=== PATIENT | male | born 1940 | race Caucasian/White ===

== ENCOUNTER 2016-07-11 08:11 | Day surgery (SDC) | payer MEDICARE ==
[~2016-07-11 08:11] MED LIST: CLINDAMYCIN 600 MG PREMIX 50 ML IV ONE; IV START KIT ONE; LACTATED RINGERS 1,000 ML ONE
[2016-07-11] MEDS ORDERED: CLINDAMYCIN 600 MG PREMIX 50 ML IV PRN (08:15)
--- NOTE | 2016-07-11 08:46 | HP ---
DATE OF CLINIC: 07/03/2016 FORTINO JORGE : 1940 PLANNED PROCEDURE: Right Shoulder Arthroscopic Rotator Cuff Repair, Biceps Tenotomy and Debridement DATE OF SURGERY: July 11, 2016 SURGEON: Bhavesh Hsieh M.D. HISTORY OF PRESENT ILLNESS Fortino Jorge is a 75 year old male. * Medication list reviewed with patient allergy list reviewed with patient. * Has not tried NSAIDS * Has not tried Physical Therapy * Has not tried Injections The patient is a 75-year-old male who has had persistent right shoulder pain. The patient is here with his and that the last time that I saw the patient. I was concerned about his shoulder pain consistent with a rotator cuff tear and a pain in the anterior aspect of his shoulder consistent with biceps tendinitis. For this reason I administered a right shoulder bicipital groove injection. The patient states that since this injection he has done quite well until May 26, 2016 when he started to have more shoulder pain. The patient's past medical history significant for right shoulder open rotator cuff repair in the late . He has done well until more recently. We do have an MRI of the shoulder that shows the full thickness rotator cuff tear. The patient has had two rotator cuff repairs on his left side for a total of three procedures on his left shoulder. He is quite familiar with this surgery and would like to talk to me about the risks and benefits of non-operative and surgical treatment. The patient does have diabetes, for which he takes metformin. He did say that the right shoulder bicipital groove injection did increase his blood sugars. This was a temporary affect. After discussion and review of treatment options, both non-operative and surgical, he has elected to proceed with surgery and presents today preoperatively. CURRENT MEDICATION * GlipiZIDE 10 MG Tablet 1 twice a day 0 days, 0 refills * MetFORMIN HCl 1000 MG Tablet 1 twice a day 0 days, 0 refills * Multivitamins Capsule 1 once a day 0 days, 0 refills * Simvastatin 40 MG Tablet 1 once a day 0 days, 0 refills PAST MEDICAL/SURGICAL HISTORY Reported: No Surgery/Hospitalizations reported. Medical: Cholesterol problems. Stomach problems, a fracture, cancer, and history of Arthritis. Surgical / Procedural: Surgical / procedural history laminectomy 1990s bilateral shoulder scope done by Dr. Agrawal @ [facility] Left knee scope Left ankle. Left shoulder scope 09/30/[address] Agrawal Bilateral trigger finger sx NO new surgeries since last seen and Arthroscopy Right knee scope/LM/debridment done 10/06/[address] Agrawal. Tests: Blood pressure was high. Diagnoses: Diabetes mellitus. Fracture Appendectomy 1959. SOCIAL HISTORY Behavioral: Chewing tobacco 3 cans a week and non-smoker quit smoking Just started Chantix again. In process of quitting. Smoking status: Never smoker. Alcohol: No consumption of alcohol rarely. Drug Use: Not using drugs. Work: Retired. ALLERGIES * Penicillins Reaction: swelling FAMILY HISTORY 5 children living Cancer sibling lung Family History Diabetes Melliutus sibling REVIEW OF SYSTEMS Systemic: No fever and no recent weight change. Cardiovascular: No chest pain or discomfort and no palpitations. Pulmonary: No cough and no wheezing. Gastrointestinal: No nausea, no vomiting, no abdominal pain, and no diarrhea. Hematologic: No easy bleeding (no blood clots). Neurological: No motor disturbances and no sensory disturbances. Skin: No skin lesions and no rash. PHYSICAL FINDINGS * Vitals taken 07/03/2016 10:56 am BP-Sitting R 155/93 mmHg 100 - 120/60 - 80 BP Cuff Size Regular Pulse Rate-Sitting 80 bpm 50 - 100 Pulse Rhythm Regular Temp-Oral 98.2 F 96 - 101 Height 72 in 64 - 74 Weight 200 lbs 121 - 205 Body Mass Index 27.1 kg/m2 Body Surface Area 2.13 m2 Pain Level 6 General Appearance: * Well developed. * In no acute distress. Eyes: General/bilateral: Extraocular Movements: * Normal. Lungs: * Clear to auscultation. * No wheezing was heard. * No rales/crackles were heard. Cardiovascular: Heart Rate and Rhythm: * Heart rate was normal. * Heart rhythm regular. Abdomen: Palpation: * Abdominal non-tender. Neurological: * Oriented to time, place, and person. Motor: * Dominant Hand = Right Hand. I examined the patient's right and left shoulders. He has a well-healed anterior open incision and on the left side. He has both well-healed in the left open shoulder arthroscopic incisions. He continues to have fairly good range of motion. He has anterior lateral pain with right shoulder overhead motion. PHYSICAL FINDINGS RIGHT EXTREMITY Shoulder General Appearance: well-healed open RCR incision anterolaterally, no bruising, no swelling, no gross deformity AROM Forward Flexion: 150 degrees ABD: 110 degrees IR: Highest posterior anatomy reached with thumb: L3 PROM Forward Flexion: 160 degrees ABD: 120 degrees ER (0): 50 degrees Strength (0-5/5) Deltoid: 5/5 Triceps: 5/5 Biceps: 5/5 EPL,Finger Flexors,Finger Extensors,Wrist Flexors, Wrist Extensors,Intrinsics,Freight Hustler: 5/5 Rotator cuff Supraspinatus: 4/5 (POSITIVE empty can test) Infraspinatus: 4/5 (no pain with resisted external rotation) Subscapularis: 5/5 (negative belly press test) Rotator Cuff Exam Neer's Sign: Negative Hawkin's Sign: POSITIVE Superior Escape: Negative Biceps Exam Bicipital Groove Tenderness: POSITIVE [place]'s Sign: Negative Speed's Test: POSITIVE Muscle Deformity (Chace): Not present AC Exam AC Tenderness: Not tender AC Deformity: Negative Instability Generalized Laxity(thumb to forearm, hyperextension of elbows and knees, hypermobility of multiple joints): Not present, no signs of shoulder instability Vascular Exam Radial Pulse: 2+ Sensation Gross sensation to light touch in the distribution of Median, Ulnar and Radial nerves present PHYSICAL FINDINGS LEFT EXTREMITY Shoulder General Appearance: well-healed arthroscopic and open RCR incision anterolaterally, no bruising, no swelling, no gross deformity AROM Forward Flexion: 160 degrees ABD: 120 degrees IR: Highest posterior anatomy reached with thumb: L4 PROM Forward Flexion: 170 degrees ABD: 120 degrees ER (0): 50 degrees Strength (0-5/5) Deltoid: 5/5 Triceps: 5/5 Biceps: 5/5 EPL,Finger Flexors,Finger Extensors,Wrist Flexors, Wrist Extensors,Intrinsics,Freight Hustler: 5/5 Rotator cuff Supraspinatus: 5/5 (negative empty can test) Infraspinatus: 5/5 (no pain with resisted external rotation) Subscapularis: 5/5 (negative belly press test) Rotator Cuff Exam Neer's Sign: Negative Hawkin's Sign: POSITIVE Superior Escape: Negative Biceps Exam Bicipital Groove Tenderness: Negative [place]'s Sign: Negative Speed's Test: Negative Muscle Deformity (Chace): Present due to a previous biceps tenotomy AC Exam AC Tenderness: Not tender AC Deformity: Negative Instability Generalized Laxity(thumb to forearm, hyperextension of elbows and knees, hypermobility of multiple joints): Not present, no signs of shoulder instability Vascular Exam Radial Pulse: 2+ Sensation Gross sensation to light touch in the distribution of Median, Ulnar and Radial nerves present TESTS * Test: CBC NO DIFF Report Date: 07/03/2016 WBC 7.1 10*3/mL MCV 89.8 fL RBC 5.58 10*6/uL MCH 30.3 pg MCHC 33.7 g/dL RDW 12.9 % PLATELET COUNT 226 10*3/mL HCT 50.1 % HGB 16.9 g/L * Test: BASIC METABOLIC PROFILE Report Date: 07/03/2016 BUN 17 mg/dL BUN/CREAT RATIO 17 CALCIUM 9.7 mg/dL GLUCOSE 191 mg/dL High CREATININE 1.0 mg/dL SODIUM 139 meq/L POTASSIUM 4.2 meq/L CHLORIDE 103 meq/L CARBON DIOXIDE 26 meq/L ANION GAP 14 meq/L GFR 73 IMAGING No new images were obtained today. I did review with the patient is March 2016 MRI. X-rays performed on April 20, 2016 show four views of the right shoulder. The patient has some changes on the AP view or Grashey view that show what may be indicative of a chronic tear. He has a slightly high ridhumeral head. He has postsurgical changes on his supraspinatus footprint and a small inferior osteophyte on the inferior aspect of his humeral head. The patient does have signs of a previous subacromial decompression. This is best seen on the sagittal view. No signs of any dislocation or arthritis seen on the axillary images. I reviewed the patient's MRI from March 18, 2016. These images show the rotator cuff with some mottled appearance more anteriorly, but overall the tendon itself does look to be appear to be still attached or fairly close to this. 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 The patient does appear to have a tear or tendinopathy, at least of the long head of the biceps. The patient's MRI was performed at [facility] and the radiology report by Dr. Cronin describes a tear of the anterior portion of the supraspinatus, but this is unclear in his mind if this is a full thickness or due to degradation of the quality of the image. He describes tendinopathy of the infraspinatus as well as biceps tendinopathy and some DJD changes of his glenohumeral joint. ASSESSMENT Bhavesh Hsieh MD made the following assessments * Complete tear of right rotator cuff tendon * Rotator cuff tendonitis -right * Bicipital tendonitis -right PLAN * OTHER Spring 7.5-325 MG TABS, as directed: one to two tabs by mouth every 4-6 hours as needed for pain, 7 days, 0 refills Clindamycin HCl 150 MG CAPS, as directed: please take two tabs by mouth every 8 hours after surgery until completed, 2 days, 0 refills Bhavesh Hsieh MD ordered the following therapy * Shoulder arthroscopy with rotator cuff repair, biceps tenotomy and debridement -right THERAPY Patient fall risk screen negative. * Patient eligible for fall risk assessment. * Patient received fall risk assessment. SURGICAL CONSENT We have discussed surgical options including right shoulder arthroscopic rotator cuff repair, biceps tenotomy, debridement and non-operative management. I talked to the patient about my findings. I told him that he has signs of an acute on chronic rotator cuff tear. I told him that there is a high liklihood that this tear may not be repairable. I do think he may benefit from a biceps tenotomy. I explained how I would perform a complete and partial repair. The goal of the surgery is to decrease his pain but if the tendon is too retracted I told him it is unlikely it will heal. I showed him my patient education powerpoint presentation and I reviewed with him the risks and benefits of surgery. These risks include, but are not limited to, persistent pain, re-tear of the tendon, injury to surrounding nerves and blood vessels, infection, hardware problems, anesthesia risks, stroke, NE and other possible problems. The patient and I discussed these risks and he agreed to proceed and signed the consent form. We then discussed the post-op rehab plan. The patient was counseled in detail regarding the diagnosis, treatment options available, prognosis of each treatment option and the potential risks and complications. The risks of surgery include, but are not limited to, anesthetic , neurovascular complications, pulmonary embolism, deep vein thrombosis, wound dehiscence, failure of any or all of the discussed procedures, infection of the joint or surrounding soft tissue, need for revision surgery, chronic pain, limitations in activities of daily living, inability to return to work, and loss of normal range of motion or functional use of the extremity. There is the possibility of failure over time that may require additional operative or non-operative treatment. The patient acknowledged that there are a number of perioperative risks not mentioned here and would still like to proceed. The patient is aware of and understands these risks, and wishes to proceed with the proposed surgical procedure and other procedures as indicated at the time of surgery. The patient has seen his PCP for a pre-op medical risk stratification. The preoperative instructions were reviewed with the patient and all questions were answered. CARE TEAM Raleigh Grijalva MD Family Practice BLP/sg
[2016-07-11] MEDS ORDERED: ROPIVACAINE 0.5% 30 ML VIAL ONE (09:46)
[2016-07-11] MEDS ORDERED: NERVE BLOCK PROCEDURAL TRAY 1 EACH ONE (09:46)
[2016-07-11] MEDS ORDERED: FENTANYL 100 MCG/2 ML VIAL ONE ×2 (09:48→11:41)
[2016-07-11] MEDS ORDERED: MIDAZOLAM HCL 1 MG/ML 2ML VIAL ONE (09:48)
[2016-07-11] MEDS ORDERED: ROCURONIUM BROMIDE 10 MG/ML DOSE IV ONE (10:41)
[2016-07-11] MEDS ORDERED: PROPOFOL 20 ML IV ONE (10:41)
[2016-07-11] MEDS ORDERED: LUBRICANT EYE OINTMENT (PF) 10 APPLIC TUBE ONE (10:41)
[2016-07-11] MEDS ORDERED: EPHEDRINE SULFATE 50 MG/ML 1ML VIAL ONE (10:52)
[2016-07-11] MEDS ORDERED: DIPHENHYDRAMINE HCL 50 MG/1 ML VIAL ONE (11:02)
[2016-07-11] MEDS ORDERED: ONDANSETRON 4 MG/2ML 2 ML VIAL ONE (11:02)
[2016-07-11] MEDS ORDERED: ON-Q PUMP/ROPIVACAINE 0.2% 450 ML ONE (13:17)
[2016-07-11] MEDS ORDERED: ATROPINE SULFATE 0.4 MG/1 ML VIAL IV PRN (13:40)
[2016-07-11] MEDS ORDERED: FENTANYL 100 MCG/2 ML VIAL IV PRN (13:40)
[2016-07-11] MEDS ORDERED: ONDANSETRON 4 MG/2ML 2 ML VIAL IV PRN ×2 (13:40→14:13)
[2016-07-11] MEDS ORDERED: ON-Q PUMP/ROPIVACAINE 0.2% 450 ML in PREMIX BAG 1 EACH NB PRN (13:40)
[2016-07-11] MEDS ORDERED: NALOXONE HCL 0.4 MG/ML VIAL IV PRN (13:40)
[2016-07-11] MEDS ORDERED: PROMETHAZINE HCL 25 MG SUP PR PRN (13:40)
[2016-07-11] MEDS ORDERED: LACTATED RINGERS 1,000 ML IV SCH (13:45)
--- NOTE | 2016-07-11 13:55 | PCMBPN ---
Brief Post Op Note: Date of Procedure: 07/11/16 Preoperative Diagnosis: 1. right shoulder rotator cuff tear and biceps tendonitis Postoperative Diagnosis: 1. 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 The patient had a partial tear of the long head of the biceps. Pt had two medial row 4.5mm Healix triple loaded anchors and a 4.75mm Bioswivelok anchor Condition: extubated, stable vitals, transferred to pacu Complications: None IV Fluids: 1600 mLs of LR Urine Output: 500 mLs Estimated Blood Loss: 20 mLs Tourniquet Time: [N/A] Specimens: [N/A] Implants: see above Drains: [N/A] PLAN: NWB on the RUE x 6 weeks after surgery. Oxycodone and Clinda for melinda-op abx.
[2016-07-11] MEDS ORDERED: ACETAMINOPHEN 325 MG TABLET PO PRN (14:13)
[2016-07-11] MEDS ORDERED: MORPHINE SULFATE 2 MG/ML SYRINGE IV PRN (14:13)
[2016-07-11] MEDS ORDERED: OXYCODONE HCL 5 MG TABLET PO PRN (14:13)
[2016-07-11] MEDS ORDERED: DIPHENHYDRAMINE HCL 50 MG/1 ML VIAL IV PRN (14:13)
[2016-07-11] MEDS ORDERED: MORPHINE SULFATE 2 MG/ML SYRINGE ONE ×2 (15:44→16:21)
--- NOTE | 2016-07-11 15:50 | RAD ---
Exam: Portable chest COMPARISON: 09/23/2014 INDICATION: Shortness of breath, postop right shoulder rotator cuffs repair. FINDINGS: A semierect AP portable view of the chest at 1542 hours demonstrates low lung volumes. Cardiac silhouette is within normal limits. There is no focal airspace disease, pleural effusion or pneumothorax. Subcutaneous gas is seen on lung the right neck, presumably related to the recent surgery. Postsurgical changes are appreciated within the distal distal clavicles. IMPRESSION: No acute pulmonary process. Report given to Kristyn in Short Stay at 1545 hours 07/11/2016.
[2016-07-11] MEDS ORDERED: LACTATED RINGERS 1,000 ML ONE (16:39)
[2016-07-11] MEDS: HYDROMORPHONE HCL 2 MG/ML SYRINGE IV PRN ×3 (17:31→19:05)
[2016-07-11] MEDS ORDERED: HYDROMORPHONE HCL 1 MG/ML SYRINGE ONE ×2 (17:32→18:54)
[2016-07-11] MEDS ORDERED: PUMP TUBING ONE (20:11)
[2016-07-11] MEDS: LACTATED RINGERS 1,000 ML IV SCH (20:15)
[2016-07-11 20:33] VITALS: BMI 27.6
[2016-07-11 22:41] LABS: HEMATOCRIT 46.3 % (32.0-52.0); HEMOGLOBIN 15.7 gm/l (14.0-18.0); MEAN CELL VOLUME 90.4 fl (80.0-94.0); MEAN CORPUSCULAR HEMOGLOBIN 30.7 pg (27.0-31.0); MEAN CORPUSCULAR HGB CONC 33.9 g/dl (33.0-37.0); RED CELL DISTRIBUTION WIDTH 12.8 % (11.5-14.5)
[2016-07-11 23:02] LABS: CALCIUM 8.8 mg/dL (8.6-10.3)
[2016-07-11 23:05] LABS: TROPONIN I < 0.01 ng/ml (0.0-0.06)
[2016-07-11 23:09] LABS: CKMB ISOENZYME 4.8 ng/ml (0.6-6.3)
[2016-07-12] MEDS ORDERED: HYDROMORPHONE HCL 1 MG/ML SYRINGE ONE (00:14)
[2016-07-12] MEDS: HYDROMORPHONE HCL 2 MG/ML SYRINGE IV PRN (00:20)
[2016-07-12] MEDS: LACTATED RINGERS 1,000 ML IV SCH ×2 (04:16→09:39)
--- NOTE | 2016-07-12 07:50 | PDOC43 ---
- Subjective Subjective: Reports Pain Tolerable (Pt states right sided chest pain is improved with inspiration. He has not gotten out of bed yet), Reports Other (Pt states he continues to urinate a lot), Denies Chest Pain, Denies Shortness of Breath, Denies Nausea, Denies Vomiting - Objective Vital Signs Temperature 98.1 F 07/12/16 07:29 Pulse Rate 83 07/12/16 07:29 Respiratory Rate 18 07/12/16 07:29 Blood Pressure 165/95 07/12/16 07:29 O2 Saturation by Pulse Oximetry 94 07/12/16 07:29 Oxygen Delivery Method Nasal Cannula Oxygen Flow Rate 2 Laboratory 07/11/16 22:30 07/11/16 22:30 07/11/16 07/11/16 22:30 08:31 Anion Gap 17 H Estimated GFR 94 H POC Capillary Glucose 117 H Active Medication Orders Category Date Time Status Acetaminophen [Tylenol] Med 07/11/16 14:13 Active 650 mg PO Q6H PRN Diphenhydramine HCl [Benadryl] Med 07/11/16 14:13 Active 25 - 50 mg IV Q6H PRN Hydromorphone HCl [Dilaudid] Med 07/11/16 17:28 Active 2 mg IV Q2H PRN Lactated Ringers 1,000 ml Med 07/11/16 14:13 Active IV 125 mls/hr Morphine Sulfate Med 07/11/16 14:13 Active 1 - 6 mg IV Q1H PRN Ondansetron 4 mg/2ml Vial [Zofran] Med 07/11/16 14:13 Active 4 mg IV Q6H PRN Oxycodone HCl [Roxicodone] Med 07/11/16 14:13 Active 5 - 10 mg PO Q4H PRN Sodium Chloride 0.9% Flush [Normal Saline 10ml Flush] Med 07/12/16 07:34 Active 10 ml IV PRN PRN Sodium Chloride 0.9% Flush [Normal Saline 10ml Flush] Med 07/12/16 09:00 Active 10 ml IV Q8HR Intake and Output 07/10/16 07/11/16 07/12/16 23:59 23:59 23:59 Intake Total 2100 2259 Output Total 520 825 Balance 1580 1434 General: Afebrile - Right Upper Extremity Incision: Dressing Clean/Dry/Intact Motor: Extensor Pollicis Longus: 4/5, Finger Flexors: 4/5, Finger Extensors: 4/5 , Wrist Flexors: 4/5, Wrist Extensors: 4/5, Intrinsics: 4/5 Gross Sensation to Light Touch: Present: Median Nerve, Ulnar Nerve, Radial Nerve Capillary Refill: < 3 Seconds - Problems (1) History of repair of right rotator cuff Status: Acute - Disposition POD#1 s/p right shoulder arthroscopic RCR Pt doing ok at this point in terms of pain with inspiration. NWB on the RUE. SLing at all times. Pt to finish abx today and then possibly discharge to home if right sided chest pain is improved. Labs were normal as was EKG last night. Pt has elevation of his right hemidiaphragm due to nerve block
[2016-07-12] MEDS ORDERED: CLINDAMYCIN 600 MG PREMIX 600 MG in Premix (D5W) 50 ml 1 EACH IV ONE (08:00)
[2016-07-12 11:11] VITALS: BP 167/98
--- NOTE | 2016-07-13 11:50 | OP ---
Fortino JORGE : 1940 [id number] DATE OF PROCEDURE: July 11, 2016 PREOPERATIVE DIAGNOSES: Right shoulder rotator cuff tear and biceps tendinitis. POSTOPERATIVE DIAGNOSES: Right shoulder rotator cuff, partial biceps tendon tear, glenoid chondromalacia. PROCEDURE: RIGHT SHOULDER ARTHROSCOPIC REVISION ROTATOR CUFF TEAR, ARTHROSCOPIC BICEPS TENOTOMY AND ARTHROSCOPIC DEBRIDEMENT. SURGEON: Bhavesh Hsieh M.D. MANAGER OF ENVIRONMENTAL SERVICES: Yonatan Don P.A.-C. ANESTHESIA: General along with a right interscalene nerve block and catheter for postoperative pain control. 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 He had a probably greater than 75% tear of the long head of the biceps. This was treated with an arthroscopic biceps tenotomy. The patient had two medial row 4.5 mm Healix triple loaded anchors. These sutures were placed with a FastPass Scorpion and placed down laterally to a 4.75 mm SwiveLock anchor. CONDITION: The patient was extubated with stable vital signs and transferred to the PACU. COMPLICATIONS: None. INTRAVENOUS FLUIDS: 1600 mL of Lactate Ringer's. URINE OUTPUT: 500 mL ESTIMATED BLOOD LOSS: 20 mL SPECIMENS: N/A TOURNIQUET TIME: N/A IMPLANTS: See above. DRAINS: N/A PLAN: The patient will be nonweightbearing on the right upper extremity for six weeks after surgery. Perioperatively we will treat him with oxycodone and clindamycin for perioperative antibiotics. ADDENDUM: In the postoperative area the patient had inspiratory pain. This happened almost 4 hours after the surgery. An EKG and lab work all were within normal limits. We elected to observe the patient overnight to see about resolution of these symptoms. INDICATIONS: The patient is a 75-year-old male who has had persistent right shoulder pain in his right shoulder. The patient is an established patient of the practice and I first saw the patient for this problem back in April of 2016. He describes anterior shoulder pain and is very familiar with rotator cuff tears. Although he has diabetes and is 75, he states that if he does have a tear he would like to consider having a surgery. In the past the patient has had an open rotator cuff repair through an anterior lateral incision. His MRI preoperatively showed some mottled appearance and possibly a tear of the rotator cuff along with a partial tear of the long head of the biceps. Prior to the surgery the patient had an injection into the bicipital groove. This patient has done well until May of 2016 when he had some more pain. The patient and I spoke about his options. He states that ideally he would like to have a more permanent solution to his pain. This may involve an arthroscopic surgery where it would address his rotator cuff tear as well as potentially performing a biceps tenotomy. I spoke to the patient prior to the surgery regarding the risks as well as the benefits of the surgery including limitations but not limited to persistent pain of the right shoulder, shoulder stiffness, the rehabilitation involved as well as other unforeseen complications such as infection, DVT, stroke as well as other possible problems. After a lengthy description regarding the risks and benefits the patient elected to proceed with surgery. PROCEDURE DESCRIPTION: The patient was seen in the preoperative area. The right arm was signed with the word "Yes" and my initials. I updated and signed the H&P and confirmed with the patient that the consent form matched our proposed procedure. The patient was seen by the anesthesia team who reviewed with the patient about the risks and benefits of right interscalene block and catheter. The patient agreed to have it placed under ultrasound guidance. It was placed without difficulty. The patient was transferred from the preoperative area to the operating theater where they were transferred from the stretcher to the operating room bed. Patient had intraoperative SCD's placed for DVT prophylaxis. The patient had a safety belt placed and then the patient was put to sleep without any problems. The patient was then placed in the left lateral decubitus position making sure an axillary roll was placed and all bony prominences were well-padded. The patient was rotated so that their back was approximately 30 degrees tilted posterior and the bed was turned 90 degrees in the room. The patient was then prepped and draped in sterile fashion first with a Betadine scrub, paint and then chlorhexidine. The patient was then placed in balanced suspension with their arm in the Arthrex STAR sleeve. At this point we performed a final time out confirming that the right side was the correct side, everyone in the room confirmed that the procedure matched the consent form and that xrays and MRI images were on the imaging board. We confirmed that clindamycin 600 mg had been given to the patient approximately 30 minutes prior to the final time out. At this time a spinal needle was used with 30 mL with normal saline to insufflate the joint through the posterior portal. Once the shoulder was insufflated a #15 blade was used to incise the skin by the posterior portal and the scope trocar was placed without incident. At this point the patient's anterior portal was made using a spinal needle from an outside-in technique first using a spinal needle to identify the position in the rotator interval followed by an incision with another #15 blade, placement of a switching stick and a 7mm cannula. Once this was in place a 15-point exam was performed using an arthroscopic probe viewing from posterior to anterior and anterior to posterior. My diagnostic arthroscopy demonstrated previously placed sutures of Ethibond by the footprint of the rotator cuff. It was definitely lifted up in the region of the supraspinatus. The patient had greater than 75% tear of the long head of the biceps which was frayed and medially subluxated as well as some grade 2 chondromalacia and labral fraying on his glenoid as well as some grade 2 chondromalacia of the humeral head. At this point through my anterior cannula I used the 3.5 shaver to debride the degenerative changes of his labral tear. I inspected the long head of the biceps with my probe and elected to perform an arthroscopic biceps tenotomy with a VAPR wand. I next used a spinal needle laterally to better evaluate the rotator cuff. I did think that this looked thinned and thought that it would be best to take this down and attempt to reattach it. I placed a Prolene suture through the rotator cuff and then through the spinal needle so that this could be identified on the bursal side and then inspected from the bursal side and performed an arthroscopic debridement of the bursa. There was some loose sutures there that I was able to removed. Once identifying the rotator cuff it was clear that the remaining rotator cuff was not firmly attached. I debrided the rotator footprint of this scar type tissue I made a lateral portal and placed the lateral cannula. Now with one cannula anterior and one cannula laterally I was able to perform my repair. I elected to do a medial row anchor. I punched a hole for a 4.75 Bioabsorbable Mitek anchor. This was a triple loaded anchor and the sutures were placed without incident or complication. I then placed a second Mitek anchor more posteriorly. With these sutures placed I then tied them down arthroscopically using arthroscopic knot tying techniques. To add to the compression I elected to place a third anchor more laterally in the greater tuberosity. This was a 4.75 mm anchor. The sutures were then attached to this and placed into the bone. At this point I used my arthroscopic probe, inspected the repair and confirmed good hemostasis and we were ready to close. I then irrigated the wound closing the skin with interrupted 4-0 Nylon sutures. Then the dressings were placed including Xeroform, 4x4, ABD along with a cryo-cuff and the patient's arm was placed in a sling. All needle and sponge counts were correct. The patient was awoken without difficulty, taken to the recovery room where the patient had good pain control. In the recovery room in which did have good pain control. Unfortunately about two hours after the surgery the patient had some right sided chest pain. This got worse with laying down on his back and with inspiratory effort. We obtained a chest x-ray as well as obtained lab work and did not identify any causes. No signs of any cardiac function. A repeat EKG did not demonstrate any change in his baseline cardiac function and we elected to observe him overnight. Job [id number] CC: [facility]
== END 2016-07-12 14:00 | disposition home or self-care (01) ==
LOC: SDC 08:11 → MS 20:22 → SDC 07-12 14:00
PROVIDERS: ATTEND Orthopaedic Surgery
DX: M75.101 Unspecified rotator cuff tear or rupture of right shoulder, not specified as traumatic (principal); M75.21 Bicipital tendinitis, right shoulder; M94.211 Chondromalacia, right shoulder; E78.00 Pure hypercholesterolemia, unspecified; E11.9 Type 2 diabetes mellitus without complications; Z87.891 Personal history of nicotine dependence; Z79.84 Long term (current) use of oral hypoglycemic drugs